=== PATIENT | male | born 1985 | race American Indian/Alaskan Native ===

== ENCOUNTER 2016-04-21 11:59 | Emergency (ER) | payer SELFPAY ==
[2016-04-21 12:12] VITALS: BP 119/76
--- NOTE | 2016-04-21 13:47 | Ultrasound Report ---
ULTRASOUND SCROTAL INDICATION: Left scrotal swelling. COMPARISON: None similar. FINDINGS: Longitudinal and transverse grayscale and color flow sonographic evaluation of the scrotum and its contents demonstrates normal testicular contour bilaterally with preserved blood flow. Mild echotexture heterogeneity with few tiny non-shadowing echogenic foci in the right testicle also possible, including more aggregated at the upper pole measuring approximately 3 x 4 mm, image 15. An approximately 2-3 mm right mid testicular cyst anteriorly or possibly in the tunica albuginea may also be present, image 16. Right testicle estimated at 4.7 x 2.6 x 3.3 cm while the left testicle is 3.8 x 2 x 2.5 cm. Small right hydrocele. Normal epididymi, approximately 1 cm on the right and 0.7 cm on the left. An approximately 2-3 mm left epididymal head cyst or spermatocele incidentally seen, image 33. CONCLUSION: 1. No evidence of testicular torsion, though subtle microlithiasis on the right and small right upper testicular echogenic focus presumed post inflammatory, as described. 2. Few other incidental findings, including small right hydrocele, small right testicular or tunica albuginea cyst and a tiny left epididymal head cyst. Thank you for the opportunity to participate in this patient's care.
--- NOTE | 2016-04-21 13:53 | Emergency Department Report ---
ED Male HPI - General Chief complaint: Urogenital-Male Stated complaint: POSS HERNIA PAIN Time Seen by Provider: 04/21/16 12:11 Source: patient Mode of arrival: Ambulatory Limitations: No Limitations - History of Present Illness Initial comments: 30-year-old male comes in for possible left hernia in his groin area. Patient reports that he's been down with a hernia for couple of months. Patient reports that today while he was at work lifting something he felt something pop and his testicle became full. Patient reports that is very painful painful to urinate he denies any penile discharge. He admits to left groin swelling. Patient reports when he came to the triage his pain was a 10 out of 10 he reports that the pain is sharp in her re-assessed him during my initial evaluation he reports that this pain is about a 8/10. MD Complaint: testicle pain, testicle swelling, dysuria, hernia (left side) - Related Data Previous Rx's Medication Instructions Recorded Last Taken Type Acetaminophen/Codeine [Tylenol #3] 1 tab PO Q6H PRN #20 tab 04/21/16 Unknown Rx Allergies Allergy/AdvReac Type Severity Reaction Status Date / Time No Known Allergies Allergy Verified 06/20/13 14:14 ED Review of Systems ROS: Stated complaint: POSS HERNIA PAIN Other details as noted in HPI Constitutional: denies: chills, fever Genitourinary: dysuria, testicular pain (left), testicular mass (left ) ED Past Medical Hx - Past Medical History Hx Asthma: Yes Additional medical history: scoliosis - Surgical History Past Surgical History?: No - Social History Smoking Status: Never Smoker Substance Use Type: Alcohol - Medications Home Medications: Home Medications Medication Instructions Recorded Confirmed Last Taken Type Acetaminophen/Codeine [Tylenol #3] 1 tab PO Q6H PRN #20 tab 04/21/16 Unknown Rx ED Physical Exam - General Limitations: No Limitations General appearance: alert, in no apparent distress - GI/Abdominal GI/Abdominal exam: Present: soft. Absent: distended, tenderness - exam: Present: testicular tenderness (left), scrotal swelling (left) ED Course Vital Signs 04/21/16 12:08 Temperature 98.9 F Pulse Rate 107 H Respiratory 16 Rate Blood Pressure 119/76 O2 Sat by Pulse 99 Oximetry ED Medical Decision Making - Radiology Data Radiology results: image reviewed CONCLUSION: 1. No evidence of testicular torsion, though subtle microlithiasis on the right and small right upper testicular echogenic focus presumed post inflammatory, as described. 2. Few other incidental findings, including small right hydrocele, small right testicular or tunica albuginea cyst and a tiny left epididymal head cyst. Thank you for the opportunity to participate in this patient's care. - Medical Decision Making Patient's been evaluated by this provider. Exam shows the left inguinal hernia that is followed through to the left testicular sac. Discussed patient room waiting for the ultrasound result. We will manage his pain. Ultrasound results are back there is no testicular torsion. We will manage patient's pain and refer him to a general surgery Critical care attestation.: If time is entered above; I have spent that time in minutes in the direct care of this critically ill patient, excluding procedure time. ED Disposition Clinical Impression: Hernia, inguinal, left Disposition: DISCHARGED TO HOME OR SELFCARE Is pt being admited?: No Does the pt Need Aspirin: No Condition: Stable Instructions: Inguinal Hernia (ED) Additional Instructions: Very important for you to follow up with the surgeon. If this is not able to be reduced or you have abdominal distention with pain that is excruciating he started vomiting or nausea gets too bearable to return back to the ER for further evaluation. Prescriptions: Acetaminophen/Codeine [Tylenol #3] 1 tab PO Q6H PRN #20 tab PRN Reason: Pain Referrals: PRIMARY CARE, [Primary Care Provider] - 3-5 Days VIKAS JOHNSON MD [Staff Physician] - 3-[address] [facility] [Outside] - 3-5 Days Forms: Work/School Release Form(ED)
[2016-04-21 14:21] LABS: Bilirubin,Urine NEG (Negative); Blood,Urine NEG (Negative); Ketones,Urine TR mg/dL (Negative); Leukocyte Esterase,Urine NEG (Negative); Mucus,Urine FEW /HPF; Nitrite,Urine NEG (Negative); Protein,Urine <15 mg/dL mg/dL (Negative); Urobilinogen,Urine < 2.0 mg/dL (<2.0)
== END 2016-04-21 15:17 | disposition home or self-care (01) ==
LOC: ED 11:59
DX: K40.90 Unilateral inguinal hernia, without obstruction or gangrene, not specified as recurrent (principal); J45.909 Unspecified asthma, uncomplicated; M41.9 Scoliosis, unspecified
CPT/HCPCS: 81001; 93975

== ENCOUNTER 2016-08-11 08:14 | Emergency (ER) | payer SELFPAY ==
[2016-08-11 08:35] VITALS: BP 140/96
== END 2016-08-11 09:46 | disposition left against medical advice (07) ==
LOC: ED 08:14
DX: M54.9 Dorsalgia, unspecified (principal); J45.909 Unspecified asthma, uncomplicated; M41.9 Scoliosis, unspecified; F17.200 Nicotine dependence, unspecified, uncomplicated; Z53.21 Procedure and treatment not carried out due to patient leaving prior to being seen by health care provider

== ENCOUNTER 2017-05-05 16:40 | Emergency (ER) | payer SELFPAY ==
[2017-05-05 16:46] VITALS: BP 129/85
[2017-05-05] MEDS ORDERED: TYLENOL PO ONE (16:48)
[2017-05-05 17:16] LABS: Basophils # (Auto) 0.1 K/mm3 (0.0-0.1); Eosinophils # (Auto) 0.7 K/mm3 (0.0-0.4); Hematocrit 42.5 % (35.5-45.6); Hemoglobin 14.2 gm/dl (11.8-15.2); Lymphocytes # (Auto) 2.3 K/mm3 (1.2-5.4); Lymphocytes % (Auto) 25.8 % (13.4-35.0); Mean Corpuscular HGB Conc 33 % (32-34); Mean Corpuscular Hemoglobin 32 pg (28-32); Mean Corpuscular Volume 95 fl (84-94); Monocytes # (Auto) 0.8 K/mm3 (0.0-0.8); Monocytes % (Auto) 8.7 % (0.0-7.3); Platelet Count 337 K/mm3 (140-440)
[2017-05-05 17:37] LABS: Alanine Aminotransferase 31 units/L (7-56); Albumin 4.6 g/dL (3.9-5); BUN/Creatinine Ratio 23; Blood Urea Nitrogen 18 mg/dL (9-20); Calcium 8.8 mg/dL (8.4-10.2); Hemolysis Index 13
== END 2017-05-05 20:16 | disposition left against medical advice (07) ==
LOC: ED 16:40
DX: R51 Headache (principal); Z53.21 Procedure and treatment not carried out due to patient leaving prior to being seen by health care provider
CPT/HCPCS: 36415; 80053; 85025

== ENCOUNTER 2017-07-10 13:41 | Emergency (ER) | payer SELFPAY ==
[2017-07-10 15:15] VITALS: BP 114/77
== END 2017-07-10 18:00 | disposition left against medical advice (07) ==
LOC: ED 13:41
DX: K46.9 Unspecified abdominal hernia without obstruction or gangrene (principal); Z53.21 Procedure and treatment not carried out due to patient leaving prior to being seen by health care provider

== ENCOUNTER 2017-07-13 11:20 | Emergency (ER) | payer SELFPAY ==
[2017-07-13 11:35] VITALS: BP 122/87
[2017-07-13 12:49] LABS: Bilirubin,Urine NEG (Negative); Blood,Urine NEG (Negative); Color,Urine Straw (Yellow); Protein,Urine <15 mg/dL mg/dL (Negative); RBC,Urine < 1.0 /HPF (0.0-6.0); Urobilinogen,Urine < 2.0 mg/dL (<2.0); WBC,Urine < 1.0 /HPF (0.0-6.0)
--- NOTE | 2017-07-13 13:54 | Emergency Department Report ---
ED Abdominal Pain HPI - General Chief Complaint: Back Pain/Injury Stated Complaint: BACK PAIN Source: patient Mode of arrival: Ambulatory Limitations: No Limitations - History of Present Illness Initial Comments: 32-year-old -[place] male comes in complaining of left lower inguinal hernia and back pain. Patient reports he does suffer from her hernia for a couple years now. He reports that is progressively getting worse since he picked something up heavy his hernia will pop out. Patient reports that he is able to reduce the hernia but it starting to have more pain and burning. Patient reports he has been buying [employer] for pain management. Patient denied any fever chills no nausea no vomiting. He reports he had a loose stool yesterday 1-2. He reports his back pain hurts and has a history of scoliosis. Patient was seen here in the emergency room one year and 3 months ago for the same issue. Patient was then referred to surgery which has not followed up. Patient has no other symptoms. Denies any fever no dysuria or urinary frequency no urinary urgency. -: week(s), year(s) (1) Location: LLQ Radiation: other (left testicle) Migration to: no migration Severity scale (0 -10): 8 Quality: aching, burning Consistency: intermittent Improves With: rest Worsens With: movement, other (picking up heavy objects) Associated Symptoms: denies other symptoms Treatments Prior to Arrival: other (been buying Percocets off the street) - Related Data Previous Rx's Medication Instructions Recorded Last Taken Type Acetaminophen/Codeine [Tylenol #3] 1 tab PO Q6H PRN #20 tab 04/21/16 Unknown Rx Ibuprofen [Motrin 600 MG tab] 600 mg PO Q8H PRN #30 tablet 07/13/17 Unknown Rx traMADol [Ultram 50 MG tab] 50 mg PO Q6HR PRN #12 tablet 07/13/17 Unknown Rx Allergies Allergy/AdvReac Type Severity Reaction Status Date / Time No Known Allergies Allergy Verified 06/20/13 14:14 ED Review of Systems ROS: Stated complaint: BACK PAIN Other details as noted in HPI Constitutional: denies: chills, fever Eyes: denies: eye pain, eye discharge, vision change ENT: denies: ear pain, throat pain Respiratory: denies: cough, shortness of breath, wheezing Cardiovascular: denies: chest pain, palpitations Endocrine: no symptoms reported Gastrointestinal: abdominal pain (lower left quadrant) Genitourinary: denies: urgency, dysuria Musculoskeletal: back pain Skin: denies: rash, lesions Neurological: denies: headache, weakness, paresthesias Psychiatric: denies: anxiety, depression Hematological/Lymphatic: denies: easy bleeding, easy bruising ED Past Medical Hx - Past Medical History Hx Asthma: Yes Additional medical history: scoliosis - Social History Smoking Status: Current Every Day Smoker Substance Use Type: Alcohol - Medications Home Medications: Home Medications Medication Instructions Recorded Confirmed Last Taken Type Acetaminophen/Codeine [Tylenol #3] 1 tab PO Q6H PRN #20 tab 04/21/16 Unknown Rx Ibuprofen [Motrin 600 MG tab] 600 mg PO Q8H PRN #30 tablet 07/13/17 Unknown Rx traMADol [Ultram 50 MG tab] 50 mg PO Q6HR PRN #12 tablet 07/13/17 Unknown Rx ED Physical Exam - General Limitations: No Limitations General appearance: alert, in no apparent distress - Head Head exam: Present: atraumatic, normocephalic - Eye Eye exam: Present: normal appearance - Neck Neck exam: Present: normal inspection - Respiratory Respiratory exam: Present: normal lung sounds bilaterally. Absent: respiratory distress - Cardiovascular Cardiovascular Exam: Present: regular rate, normal rhythm. Absent: systolic murmur, diastolic murmur, rubs, gallop - GI/Abdominal GI/Abdominal exam: Present: soft, tenderness (left side ingunial tenderness able to reduce, no testical tenderness or fullnes. ), normal bowel sounds - Rectal Rectal exam: Present: deferred - exam: Present: normal inspection. Absent: testicular tenderness, urethral discharge, scrotal swelling, circumcision - Extremities Exam Extremities exam: Present: normal inspection - Back Exam Back exam: Present: normal inspection, full ROM - Neurological Exam Neurological exam: Present: alert, oriented X3 - Psychiatric Psychiatric exam: Present: normal affect, normal mood - Skin Skin exam: Present: warm, dry, intact, normal color. Absent: rash ED Course Vital Signs 07/13/17 11:32 Temperature 98 F Pulse Rate 74 Respiratory 18 Rate Blood Pressure 122/87 O2 Sat by Pulse 97 Oximetry ED Medical Decision Making - Medical Decision Making Patient's been evaluated by this provider fast track. Discussed the patient that the hernia is reproducible denies any testicular tenderness during examination. Discussed patient he can follow-up with [facility] to be evaluated for treatment and management. Patient verbalized understanding. Critical care attestation.: If time is entered above; I have spent that time in minutes in the direct care of this critically ill patient, excluding procedure time. ED Disposition Clinical Impression: Inguinal hernia Qualifiers: Obstruction and gangrene presence: without obstruction or gangrene Laterality: unilateral Recurrence: recurrent Qualified Code(s): K40.91 - Unilateral inguinal hernia, without obstruction or gangrene, recurrent Disposition: DC-01 TO HOME OR SELFCARE Is pt being admited?: No Does the pt Need Aspirin: No Condition: Stable Instructions: Inguinal Hernia (ED) Additional Instructions: Please take pain medication as prescribed. Please follow-up with a general surgeon evaluation of possible surgery. Return back to the emergency room if he had excruciating pain touch and not able to reduce the hernia. Prescriptions: Ibuprofen [Motrin 600 MG tab] 600 mg PO Q8H PRN #30 tablet PRN Reason: Pain traMADol [Ultram 50 MG tab] 50 mg PO Q6HR PRN #12 tablet PRN Reason: Pain Referrals: PRIMARY CARE, [Primary Care Provider] - 3-5 Days
== END 2017-07-13 14:33 | disposition home or self-care (01) ==
LOC: ED 11:20
DX: K40.91 Unilateral inguinal hernia, without obstruction or gangrene, recurrent (principal); J45.909 Unspecified asthma, uncomplicated; F17.200 Nicotine dependence, unspecified, uncomplicated
CPT/HCPCS: 81001; 99283

== ENCOUNTER 2017-10-19 14:17 | Emergency (ER) | payer SELFPAY | END 2017-10-19 16:00 | LOC: ED 14:17 | DX: T62.91XA Toxic effect of unspecified noxious substance eaten as food, accidental (unintentional), initial encounter (principal); X58.XXXA Exposure to other specified factors, initial encounter; Z53.21 Procedure and treatment not carried out due to patient leaving prior to being seen by health care provider ==

== ENCOUNTER 2018-06-25 15:15 | Emergency (ER) | payer SELFPAY | END 2018-06-25 15:30 | disposition left against medical advice (07) | LOC: ED 15:15 | DX: R10.32 Left lower quadrant pain (principal); Z53.21 Procedure and treatment not carried out due to patient leaving prior to being seen by health care provider ==